=== PATIENT | female | born 1960 | race Caucasian/White ===

== ENCOUNTER 2020-05-11 10:22 | Outpatient (CLI) | payer OTHER ==
--- NOTE | 2020-05-11 14:19 | RAD ---
LUMBAR SPINE THREE VIEWS: 05/11/20 HISTORY: One year of low back pain. FINDINGS: Five lumbar type vertebrae. Lumbar spine vertebral body height is maintained. No fracture. Mild loss of disc space height and osteophyte formation at L3-L4. Mild hypertrophic changes of facets at L4-L5 and L5-S1. Mild osteophyte formation at L1-L2. Visualized sacrum and bony pelvis are intact. IMPRESSION: Mild degenerative changes of the lumbar spine as above. POS: [facility]
--- NOTE | 2020-05-11 14:21 | RAD ---
EXAM: THREE VIEWS CERVICAL SPINE: 05/11/20 HISTORY: Pain in the right shoulder and neck. FINDINGS: On the open mouth projection, lateral masses of C1 and C2 articulate appropriately. Intact odontoid p rocess. On the AP projection, multilevel facet hypertrophy. No malalignment. Predental space is normal. No prevertebral soft tissue swelling. Moderate loss of disc space height a nd osteophyte formation at C5-C6. Mild degenerative changes at C4-C5 and C6-C7. IMPRESSION: Moderate degenerative disc disease at C5-C6. POS: [facility]
== END 2020-05-11 10:23 | disposition home or self-care (01) ==
LOC: SCSRAD 10:22
PROVIDERS: ATTEND Neurological Surgery
DX: M47.26 Other spondylosis with radiculopathy, lumbar region (principal); M50.322 Other cervical disc degeneration at C5-C6 level
CPT/HCPCS: 72040; 72100

== ENCOUNTER 2021-10-09 07:50 | Outpatient (CLI) | payer OTHER ==
[2021-10-09] MEDS ORDERED: Iopamidol 370 76% 100 ML VIAL ONE (08:00)
== END 2021-10-09 07:51 | disposition home or self-care (01) ==
LOC: CT 07:50
PROVIDERS: ATTEND Internal Medicine Hematology & Oncology
DX: C54.1 Malignant neoplasm of endometrium (principal); C50.919 Malignant neoplasm of unspecified site of unspecified female breast; K76.9 Liver disease, unspecified; K57.30 Diverticulosis of large intestine without perforation or abscess without bleeding; K42.9 Umbilical hernia without obstruction or gangrene; Z90.710 Acquired absence of both cervix and uterus
CPT/HCPCS: 71260; 74177; 82565; Q9967

== ENCOUNTER 2022-11-06 18:00 | Outpatient (CLI) | payer OTHER | END 2022-11-06 18:01 | disposition home or self-care (01) | LOC: SLEEPLAB 18:00 | PROVIDERS: ATTEND Internal Medicine | DX: G47.33 Obstructive sleep apnea (adult) (pediatric) (principal); G47.00 Insomnia, unspecified; R53.83 Other fatigue; E66.9 Obesity, unspecified; R06.83 Snoring; E03.9 Hypothyroidism, unspecified; M54.2 Cervicalgia; C50.919 Malignant neoplasm of unspecified site of unspecified female breast; C54.1 Malignant neoplasm of endometrium; Z68.31 Body mass index [BMI] 31.0-31.9, adult | CPT/HCPCS: 95800 ==